=== PATIENT | female | born 2000 | race Caucasian/White ===

== ENCOUNTER 2020-05-18 05:07 | Day surgery (SDC) | payer OTHER ==
[2020-05-15 10:50] VITALS: BMI 26.4
[2020-05-18] MEDS ORDERED: fentaNYL CITRATE 250 MCG/5 ML VIAL ONE (19:31)
[2020-05-18] MEDS ORDERED: MIDAZOLAM HCL 2 MG/2 ML SINGLE DOSE VIAL ONE ×2 (19:31→19:57)
[2020-05-18] MEDS ORDERED: PROPOFOL 20 ML ONE (19:34)
[2020-05-18 20:57] VITALS: BP 141/79; PULSE 79; TEMP 97.5
== END 2020-05-18 20:45 | disposition home or self-care (01) ==
LOC: JASU-SURG 05:07
PROVIDERS: ATTEND Urology
PROC: 0TF3XZZ Fragmentation in Right Kidney Pelvis, External Approach (ICD-10-PCS; principal; 2020-05-18 19:30)
DX: N20.0 Calculus of kidney (principal)
CPT/HCPCS: 84703

== ENCOUNTER 2024-06-14 15:13 | Emergency (ER) | payer OTHER ==
[2024-06-14 15:21] VITALS: BP 132/80; PULSE 82; RESP 18; TEMP 97.7; BMI 20.9
[2024-06-14 16:07] LABS: HCG,QUALITATIVE URINE Positive
[2024-06-14 16:10] LABS: EPI CELLS 12 /uL (0-25.1); HYALINE CASTS 1 /uL (0-3.1); PH,URINE 5.5 (5.0-8.0); URINE APPEARANCE CLEAR; URINE BACTERIA 42 /uL (0-1359); URINE BILIRUBIN NEGATIVE (NEGATIVE); URINE COLOR YELLOW; URINE GLUCOSE (UA) NEGATIVE (NEGATIVE); URINE KETONE NEGATIVE (NEGATIVE); URINE LEUK ESTERASE NEGATIVE (NEGATIVE); URINE NITRITE NEGATIVE (NEGATIVE); URINE PROTEIN NEGATIVE (NEGATIVE); URINE RBC 8 /uL (0-23.9); URINE UROBILINOGEN 0.2 mg/dL (0.2-1.0); URINE WBC 8 /uL (0-25.8)
[2024-06-14 16:41] LABS: BASO % 0.5 % (0-2.0); EOS % 0.6 % (0-4.5); HEMATOCRIT 38.2 % (32.4-45.2); HEMOGLOBIN 12.4 GM/dL (10.7-15.3); LYMPH % 21.8 % (8-40); MCH 28.9 pg (25.7-33.7); MCHC 32.4 g/dl (32.0-36.0); MEAN CELL VOLUME 89.2 fl (80-96); MEAN PLT VOLUME 8.3 fl (7.5-11.1); NEUT % 68.1 % (42.8-82.8); PLATELET COUNT 244 10^3/uL (134-434); RBC 4.28 M/mm3 (3.60-5.2); RDW 12.7 % (11.6-15.6); WHITE BLOOD COUNT 11.7 K/mm3 (4.0-10.0)
[2024-06-14 16:49] LABS: POTASSIUM 4.2 mmol/L (3.5-5.1)
[2024-06-14 16:51] LABS: CALCIUM 9.4 mg/dL (8.5-10.1)
[2024-06-14 16:52] LABS: ALBUMIN 3.7 g/dl (3.4-5.0); BLOOD UREA NITROGEN 10.2 mg/dL (7-18)
[2024-06-14 16:56] LABS: CREATININE 0.8 mg/dL (0.55-1.3)
[2024-06-14 16:58] LABS: BILIRUBIN,TOTAL 0.3 mg/dL (0.2-1); TOT PROT 7.4 g/dl (6.4-8.2)
[2024-06-14 17:45] LABS: HIV INTERPRETATION NEGATIVE (NEGATIVE)
== END 2024-06-14 19:45 | disposition home or self-care (01) ==
LOC: JER 15:13
DX: O20.9 Hemorrhage in early pregnancy, unspecified (principal); Z3A.01 Less than 8 weeks gestation of pregnancy
CPT/HCPCS: 36415; 76817-TC; 80053; 81003; 84702; 84703; 85025; 86803; 86850; 86900; 86901; 87086; 87389; 99284-25